=== PATIENT | male | born 1995 | race Two or more races ===

== ENCOUNTER 2024-12-17 12:05 | Emergency (ER) | payer OTHER, BC ==
[~2024-12-17] VITALS: Ht 172.7 cm; Wt 79.8 kg
[2024-12-17] MEDS ORDERED: IBUP-1490 PO (14:42)
[2024-12-17 15:03] VITALS: BP 137/60; TEMP 98.3; O2SAT 99
== END 2024-12-17 15:03 | disposition home or self-care (01) ==
LOC: ER 12:17
DX: S93.401A Sprain of unspecified ligament of right ankle, initial encounter (principal); S30.0XXA Contusion of lower back and pelvis, initial encounter; S23.3XXA Sprain of ligaments of thoracic spine, initial encounter; R07.9 Chest pain, unspecified; R10.2 Pelvic and perineal pain; R51.9 Headache, unspecified; V43.52XA Car driver injured in collision with other type car in traffic accident, initial encounter; Y93.89 Activity, other specified; Y92.488 Other paved roadways as the place of occurrence of the external cause; Y99.8 Other external cause status
CPT/HCPCS: 71045-TC; 72074-TC; 72170-TC; 73590-TC; 73610-TC